=== PATIENT | male | born 1980 | race Two or more races ===

== ENCOUNTER 2025-11-27 10:53 | Emergency (ER) | payer MEDICAID, SELFPAY ==
[2025-11-27 10:54] VITALS: BMI 28.3
--- NOTE | 2025-11-27 11:14 | XR_ITS ---
EXAMINATION: PA lateral chest 2 views Technique when upright PA lateral chest 2 views Date and time: 731, 5, 1124 hours INDICATION: Coughing congestion beginning 5 days ago. FINDINGS: Early bilateral perihilar bibasilar pneumonia Normal heart size Intact osseous structures IMPRESSION: Early bilateral perihilar bibasilar pneumonia
[2025-11-27 11:17] VITALS: BP 143/93; PULSE 92; RESP 20; TEMP 37.6; O2SAT 94; BMI 28.9
--- NOTE | 2025-11-27 12:34 | PD.EDURI ---
Upper Respiratory Inf. RME/HPI General Chief Complaint: Flu Like Symptoms Stated Complaint: COUGH [id number] Time Seen by Provider: 11/27/25 11:14 Arrival date/time: 11/27/25 10:53 45-year-old male presents to the emergency department today complains of cough, congestion ongoing x 6 days. Patient's is being seen as the patient was tested positive for influenza here today. Limitations: no limitations Related Data Previous Rx's ?Medication ?Instructions ?Recorded azithromycin 500 mg tablet See Rx Instructions PO .COMPLEX #6 11/27/25 tabs benzonatate 100 mg capsule 100 mg PO TID #14 caps 11/27/25 ibuprofen 800 mg tablet 800 mg PO TID PRN pain #30 tabs 11/27/25 Allergies Allergy/AdvReac Type Severity Reaction Status Date / Time NKA* Allergy Uncoded 11/27/25 10:56 Review of Systems Review of Systems Systems Reviewed: All systems reviewed, normal except as documented Constitutional Constitutional: Reports system reviewed and no additional complaints, except as documented, Denies fever(s) and Reports headache(s) Eyes Eyes: Reports system reviewed and no additional complaints, except as documented and Denies blurry vision ENT Ears, Nose, Mouth, and Throat: Reports system reviewed and no additional complaints, except as documented, Reports headache(s), Reports nasal congestion and Reports nasal discharge Cardiovascular Cardiovascular: Reports system reviewed and no additional complaints, except as documented, Denies chest pain and Denies dyspnea Respiratory Respiratory: Reports system reviewed and no additional complaints, except as documented, Reports chest congestion, Reports cough and Denies dyspnea Gastrointestinal Gastrointestinal: Reports system reviewed and no additional complaints, except as documented and Denies abdominal pain Integumentary/Breasts Skin/Breast: Reports system reviewed and no additional complaints, except as documented and Denies rash Neurologic Neurologic: Reports system reviewed and no additional complaints, except as documented, Reports as per HPI and Reports headache(s) Past Medical History Social History SMOKING STATUS: Never smoker ED Exam General Limitations: Present no limitations General appearance: Present alert and in no apparent distress Head Head exam: Present atraumatic, normocephalic and normal inspection Eye Eye exam: Present normal appearance, PERRL and EOMI; Absent conjunctival injection ENT ENT exam: Present normal exam, normal oropharynx and mucous membranes moist Neck Neck exam: Present normal inspection, full ROM and trachea midline Chest Chest inspection: Present normal inspection and symmetric chest wall rise Respiratory Respiratory exam: Present normal lung sounds bilaterally; Absent respiratory distress Cardiovascular Cardiovascular exam: Present regular rate, normal rhythm and normal heart sounds Abdominal Exam Abdominal exam: Present soft and normal bowel sounds; Absent distention, tenderness, guarding, rebound or rigidity Extremities Exam Extremities exam: Present normal inspection and full ROM Back Exam Back exam: Present normal inspection and full ROM Neurological Exam Neurological exam: Present alert, oriented X3, CN II-XII intact, normal gait and reflexes normal; Absent motor sensory deficit Psychiatric Psychiatric exam: Present normal affect and normal mood Skin Skin exam: Present warm, dry, intact and normal color; Absent rash Course Quality Measures none Orders Category Date Time Status Bedside Influenza A&B Antigen Test NOW Care 11/27/25 11:14 Completed XR chest 2V Stat Exams 11/27/25 11:14 Completed Vital Signs Vital signs: Vital Signs Temperature 99.6 F 11/27/25 11:17 Pulse Rate 92 11/27/25 11:17 Respiratory Rate 20 11/27/25 11:17 Blood Pressure 143/93 H 11/27/25 11:17 Pulse Oximetry (%) 94 L 11/27/25 11:17 Oxygen Delivery Method Room Air 11/27/25 11:17 O2 saturation 94% on room air Upper Respiratory Infection MDM Narrative MDM Narrative:: 45-year-old male presents to the emergency department today complains of cough, congestion ongoing x 6 days. Patient's is being seen as the patient was tested positive for influenza here today. Clinically patient well-appearing does not appear ill or toxic no acute distress Patient checked for flu which came back negative although patient does have positive sick contact Chest x-ray consistent with pneumonia I suspect this is viral pneumonia but as the patient does have pneumonia on x-ray patient will be treated with antibiotics Patient discharged home in no distress to follow-up with primary care doctor in the next 24 to 48 hours and for any worsening symptoms to return to the ER immediately Patient data External records reviewed:: [facility] previous records Clinical information provided by:: patient Social determinants that could affect healthcare access:: none Patient has the following chronic illnesses:: See history How is presenting disease/condition affected by chronic disease/condition?: uneffected by Evaluation data The following diagnostics were reviewed and interpreted by me:: lab results and radiology exam(s) Lab and/or radiology exams considered but not ordered:: Lab and radiology obtained Interpretation Summary: Reviewed by me Medications / Prescriptions Medications or Prescriptions considered but not ordered:: Given Medication administrations:: Given Consultations Consultation(s) initiated? (list below): No Diagnosis Upper Respiratory Differential Diagnosis: upper respiratory infection, otitis media, sinusitis, viral infection and bronchitis Most likely diagnosis given after review of the tests above:: URI Admission Indicated Admission indicated?: not indicated Admission Request Was there a request for admission?: No Disposition Plan Disposition Plan: Discharge Discharge Attestation Discharge Attestation: The patient and all family members were given an opportunity to ask questions and understood the discharge instructions. Discharge instructions specifically effects, indications for sooner follow up or return to the emergency department, and the expected course of current diagnosis. Patient condition: Stable Discharge Plan Plan Patient Disposition: HOME (Self Care) Discharge Disposition comment: Stable Prescriptions/Referrals Prescriptions/Med Rec: New ibuprofen 800 mg tablet 800 mg PO TID PRN (Reason: pain) Qty: 30 0RF benzonatate 100 mg capsule 100 mg PO TID Qty: 14 0RF azithromycin 500 mg tablet See Rx Instructions .ROUTE .COMPLEX Qty: 6 0RF Rx Instructions: take 500 mg today (day 1), then 250 mg for 4 days (days 2-5) Referrals: Yassine Ward MD [Primary Care Provider, Family Practice] - In 1 week Problem List Clinical Impression: Pneumonia, Exposure to influenza Patient/Caregiver Discharge Instructions Education Materials: What Is Pneumonia? Additional Instructions: Please follow up with your primary care doctor in the next 24-48hrs for any worsening symptoms return here immediately Print Language: Polish Stand Alone Forms: Milana Award Info., Patient Portal Info Letter PA/ANGIE Supervising Physician PA/ANGIE Supervising Physician: Dr. Manjarrez
[2025-11-27 13:21] VITALS: O2SAT 97
== END 2025-11-27 13:22 | disposition home or self-care (01) ==
PROVIDERS: Emergency Provider Emergency Medicine; PCP Family Medicine
DX: J18.9 Pneumonia, unspecified organism (principal); Z20.828 Contact with and (suspected) exposure to other viral communicable diseases
CPT/HCPCS: 71046; 87502; 99283